=== PATIENT | male | born 1970 | race Caucasian/White ===

== ENCOUNTER → 2017-11-19 | Outpatient (CLI) | payer OTHER ==
--- NOTE | 2017-11-20 05:06 | MR ---
MRI CERVICAL SPINE: CLINICAL HISTORY: M 54.2,M 50.31, S 13.4XXA, S 13.40A, and S16.1XXA all per order. Neck pain with Tin gling in hands for 3 months per patient. TECHNIQUE: Multiplanar, multisequence imaging of the cervical spine is performed without IV contrast. COMPARISON: None. FINDINGS: Coronal images show dextroconvex scoliosis centered in the upper thoracic spine. Sagittal i mages of the cervical spine show the craniocervical junction to appear within normal limits. The cer vical and upper thoracic spinal cord is normal in course, caliber, and signal. Exaggerated cervical c urvature is present. There is mild disc space narrowing C4-C5 and C5-C6 levels. The vertebral body a nd intravertebral disk heights otherwise are normal. There is small posterior disc herniation at C5-C 6 level on sagittal images effacing the anterior thecal sac. The bone marrow signal intensity is with in normal limits. No significant spurring is seen. Axial images show the C2-C3 level to appear within normal limits. Axial images at C3-C4 level show uncovertebral facet degenerative changes bilaterally. There is broad -based right paracentral disc protrusion. There is effacement of the anterolateral thecal and moderat e right and mild left-sided neural foraminal narrowing seen. Axial images at C4-C5 level show uncovertebral facet degenerative changes bilaterally contributing to mild bilateral neural foraminal narrowing. Axial images at C5-C6 level show right greater than left uncovertebral facet degenerative changes. Th ere is broad-based central disc protrusion effacing anterior thecal sac up to ventral surface of spin al cord. There is moderate bilateral neural foraminal narrowing at this level identified. Axial images at C6-C7 level shows suspected blooming artifact with small central disc protrusion mild ly effacing anterior thecal sac, bilateral neural foramina are patent. Axial images at C7-T1 level are felt within normal limits. IMPRESSION: Scoliosis and exaggerated cervical curvature with multilevel degenerative changes most pr ominent at C3-C4 through C5-C6 level as detailed above.
== END | disposition home or self-care (01) ==
LOC: RADMRIMAIN 20:36
PROVIDERS: ATTEND Chiropractor
DX: M47.812 Spondylosis without myelopathy or radiculopathy, cervical region (principal); M41.82 Other forms of scoliosis, cervical region
CPT/HCPCS: 72141

== ENCOUNTER → 2021-07-30 | Outpatient (CLI) | payer BC, OTHER ==
--- NOTE | 2021-07-30 12:21 | MR ---
EXAMINATION TYPE: MR cervical spine wo con DATE OF EXAM: 07/30/2021 COMPARISON: 11/19/2017 HISTORY: Neck pain and hand tingling for 3 years. TECHNIQUE: Multiplanar, multisequence images of the cervical spine were acquired without contrast. C2-C3: Degenerative disc disease with loss of disc signal. Neural foramina patent. No disc herniation or canal stenosis. C3-C4: Degenerative disc disease. There is uncovertebral joint hypertrophy greater on the right. Ther e is facet arthropathy with moderate right neural foraminal encroachment and mild left neural foramin al encroachment. Broad-based disc bulging capped by spur paracentrally the right. No Canal stenosis. C4-C5: Degenerative disc disease with broad-based disc bulging. There is uncovertebral joint hypertro phy greater on the right mild to moderate right-sided foraminal encroachment. No Canal stenosis. Find ings are similar to prior exam. C5-C6: right greater than left uncovertebral facet degenerative changes. There is broad-based central disc protrusion effacing anterior thecal sac up to ventral surface of spinal cord. There is moderate bilateral neural foraminal narrowing at this level identified C6-C7: suspected blooming artifact with small central disc protrusion mildly effacing anterior thecal sac, bilateral neural foramina are patent. C7-T1: No evidence for degenerative disc disease. No disc bulge/herniation or protrusion. No Canal stenosis. Foramina are patent bilaterally. Cervical segments are intact. There is normal alignment. Cervical spinal cord evaluation is limited due to artifact. Craniovertebral junction relationships are within normal limits. IMPRESSION: 1. Multilevel degenerative disc disease with scoliosis and multilevel foraminal encroachment secondar y to uncovertebral joint hypertrophy and facet arthropathy similar to prior exam. 2. Central disc protrusion C5-C6 encroaching upon the anterior margin the spinal cord similar to the prior exam. Bilateral foraminal encroachment at this level. Findings result in central canal stenosis .
== END | disposition home or self-care (01) ==
LOC: RADMRIMAIN 10:28
PROVIDERS: ATTEND Family Medicine
DX: M50.321 Other cervical disc degeneration at C4-C5 level (principal); M41.82 Other forms of scoliosis, cervical region; M47.812 Spondylosis without myelopathy or radiculopathy, cervical region; M50.222 Other cervical disc displacement at C5-C6 level
CPT/HCPCS: 72141